=== PATIENT | male | born 1980 | race Caucasian/White ===

== ENCOUNTER 2017-01-04 11:10 | Emergency (ER) ==
[2017-01-04 11:22] VITALS: BP 129/077
[2017-01-04] MEDS ORDERED: XYLOCAINE-MPF 1% INJ ONE (11:29)
[2017-01-04] MEDS ORDERED: ULTRAM PO ONE (11:29)
--- NOTE | 2017-01-04 11:35 | PROVIDER DOCUMENTATION ---
HPI-Rash/Wound/ReCheck - General Source: patient - History of Present Illness-Dermatology Location: reports: lower extremity (L rust) Quality: reports: painful Severity: reports: mild Onset/Duration: reports: just prior to arrival Timing: reports: still present Context/Associated Symptoms: reports: laceration (L rust) Identifiable cause?: Yes (chainsaw ) Locality of Occurance: Home Similar Symptoms Previously?: Yes Recently seen or treated by another doctor?: No <Viktoriya Altman - Last Filed: 01/04/17 11:30> <Herb Alanis - Last Filed: 01/04/17 11:56> - General Chief Complaint: Laceration[s] Stated Complaint: LACERATION{S} Time Seen by Provider: 01/04/17 11:27 - History of Present Illness-Dermatology Nature of Presenting Problem: Pt is 36 y/o M presents to the ED with laceration to L rust. Pt states using a chainsaw and hitting leg. Pt denies numbness or tingling in L leg. Pt is able to ambulate after accident. Pt denies any other injury. (Viktoriya Altman) Review of Systems - Adult - REVIEW OF SYSTEMS - ADULT Constitutional: denies: chills, fever Eyes: denies: blurred vision, double vision Ears, Nose, Mouth & Throat: denies: ear pain, nose pain, throat pain Cardiovascular: denies: chest pain, heart murmur, irregular heart rate Respiratory: denies: cough, shortness of breath, wheezing Gastrointestinal: denies: abdominal pain, diarrhea, nausea, vomiting Genitourinary: denies: dysuria, hematuria Musculoskeletal: denies: bone pain, back pain, joint pain, neck pain Integumentary: reports: other (laceration to L rust). denies: hives, itching Neurological: denies: dizziness/vertigo, headache/migraines Psychiatric: reports: no symptoms reported Endocrine: reports: no symptoms reported Hematologic/Lymphatic: reports: no symptoms reported Allergic/Immunologic: reports: no symptoms reported All Other Systems: Reviewed and Negative <Viktoriya Altman - Last Filed: 01/04/17 11:30> Past History - Adult - PAST MEDICAL HISTORY-ADULT Review of Records: reports: Nursing Assessment Review, Medications Reviewed, Social history reviewed & non-contributory. Major Childhood Illnesses: reports: denies history Cardiovascular: reports: denies history Respiratory: reports: denies history Gastrointestinal: reports: denies history Obstetrical/Gynecological: reports: denies history Genitourinary: reports: denies history Musculoskeletal: reports: denies history Neurological: reports: denies history Endocrine/Immune: reports: denies history Other Conditions: reports: denies history - PRIOR SURGERIES/PROCEDURES Surgical/Procedure History: reports: reviewed, not pertinent - IMMUNIZATION STATUS Childhood Immunizations: See Nurse Assessment Flu Vaccine: See Nurse Assessment - FAMILY HISTORY Family History: reviewed, not pertinent - SOCIAL HISTORY Smoking: cigarettes, less than 1 pack/day Provider spent 3-5 mins advising pt. on dangers of tobacco.: Discussed manners to quit use, and f/u contacts for add'l counseling. Substance Use: alcohol Living Situation: family <Viktoriya Altman - Last Filed: 01/04/17 11:30> Physical Exam-General - PHYSICAL EXAM-ADULT Initial Vital Signs Reviewed: Yes - CONSTITUTIONAL General Appearance: appears well, alert, no apparent distress - EYES Eyes: PERRL/EOMI, pink conjunctivae, fundi clear, no AV nicking - HEAD, EARS, NOSE, MOUTH & THROAT HENMT: normocephalic/atraumatic, moist mucous membranes, normal ENT inspection, TMs normal, pharynx normal - NECK Neck: non-tender, full range of motion, supple, normal inspection - RESPIRATORY Respiratory: chest non-tender, lungs clear, normal breath sounds, no pleuratic chest pain, no respiratory distress, no accessory muscle use - CARDIOVASCULAR Cardiovascular: normal peripheral pulses, regular rate, rhythm, no edema, no gallop, no JVD, no murmur - GASTROINTESTINAL (ABDOMEN) Abdominal Exam: normal bowel sounds, non tender, soft, no organomegaly, no pulsatile mass - LYMPHATIC Lymphatic: no adenopathy - MUSCULOSKELETAL Back Exam: normal inspection, no CVA tenderness, no vertebral tenderness Extremity: normal range of motion, normal gait, normal inspection, no pedal edema, tenderness (L rust) - SKIN Integumentary: normal color, normal turgor, laceration(s) (3 cm lac to L rust) - NEUROLOGIC Neurologic: grossly normal - PSYCHIATRIC Psych/Mental Status: normal mood/affect, normal thought content, oriented x 3 <Viktoriya Altman - Last Filed: 01/04/17 11:30> Progress <Viktoriya Altman - Last Filed: 01/04/17 11:30> <Herb Alanis - Last Filed: 01/04/17 11:56> - PLAN OF CARE/RESULTS Progress/Plan/Lab Results: Orders Category Date Time Status Suture Tray Set-Up DIRECTED Care 01/04/17 11:29 Active Lidocaine 1% Pf [Xylocaine-Mpf 1%] Med 01/04/17 11:29 Discontinued See Dose Instructions INJ NOW ONE Tramadol [Ultram] Med 01/04/17 11:29 Discontinued 50 mg PO NOW ONE Vital Signs - 24 hr 01/04/17 11:18 Temperature 97.2 F L Pulse Rate 65 Respiratory 20 Rate Blood Pressure 129/077 O2 Sat by Pulse 100 Oximetry (Viktoriya Altman) Orders Category Date Time Status Suture Tray Set-Up DIRECTED Care 01/04/17 11:29 Active Lidocaine 1% Pf [Xylocaine-Mpf 1%] Med 01/04/17 11:29 Discontinued See Dose Instructions INJ NOW ONE Tramadol [Ultram] Med 01/04/17 11:29 Discontinued 50 mg PO NOW ONE Vital Signs Temp Pulse Resp BP Pulse Ox 01/04/17 11:18 97.2 F L 65 20 129/077 100 Tetanus is up to date. (Herb Alanis) Procedures - LACERATION/WOUND REPAIR/FB Left Tibia Wound Location: Other: left anterior tibia Wound Length: 3cm Wound's Depth, Shape: superficial, linear Wound Explored/Foreign Body: clean Irrigated with Saline?: Yes Prepped with: Hibiclens, Kit Utilized, Sterile Drapes Applied Anesthetic: 1%, Lidocaine/Xylocaine Volume of Anesthetic (ml's): 4 Wound Repaired with: Sutures Suture Size/Type: 4.0, Non-Absorbable, Nylon Layer Closure?: No Deep Layer Suture Size/Type: 4.0, Non-Absorbable, Nylon Number Deep Layer Sutures: 4 Sterile Dressing Applied?: Yes Splint Applied?: No Sling Applied?: No Post Procedure Neurovascular Exam: N/A Procedure Comment: no complications <Herb Alanis - Last Filed: 01/04/17 11:56> Departure <Viktoriya Altman - Last Filed: 01/04/17 11:30> - Departure Time of Disposition Order: 11:55 Certified Medical Emergency: Urgent <Herb Alanis - Last Filed: 01/04/17 11:56> - Departure DIAGNOSIS: Laceration of lower leg without complication Qualifiers: Encounter type: initial encounter Laterality: left Qualified Code(s): S81.812A - Laceration without foreign body, left lower leg, initial encounter Disposition: HOME 01 Condition: Good Additional Instructions: Keep area clean and dry. Follow up in 1 week for suture removal. ED Follow Up Instructions: You have been treated by a care provider in the Emergency Department. These instructions are being provided to you so you can have an understanding of how to care for yourself upon discharge. Upon discharge from the Emergency Department, you are responsible for making arrangements for follow-up care by a physician of your choice. Take all prescribed medications as directed. Return to the Emergency Department immediately for any new or worsening symptoms. You may call the Physician Referral phone number at [phone] to obtain a list of Physicians who are taking new patients. Referrals: Andrew Simon MD [Primary Care Provider] - Attestation - Scribe Verification/Attestation Scribe:: Viktoriya Altman Acting as Scribe for:: Herb Alanis Scribe documention review:: This chart was documented by a scribe and accurately reflects the service the provider performed and the decisions made by the provider. <Viktoriya Altman - Last Filed: 01/04/17 11:30> - Physician/ MIGUEL ÁNGEL Attestation Patient care was provided by Advanced Practice Provider:: Yes Advanced Practice Provider:: Herb Alanis Advanced Practice Provider documentation review:: The Mid-level provider documentation, treatment plan and medical decision making was reviewed by the physician who agrees with all treatment and medical decision making by the P. <Herb Alanis - Last Filed: 01/04/17 11:56> Physician Attestation
[2017-01-04] MEDS ORDERED: NEOSPORIN OINTMENT PACKET ONE (12:23)
== END 2017-01-04 12:31 | disposition home or self-care (01) ==
LOC: P.ED 11:10
DX: S81.812A Laceration without foreign body, left lower leg, initial encounter (principal); M79.662 Pain in left lower leg; F17.210 Nicotine dependence, cigarettes, uncomplicated; Z71.6 Tobacco abuse counseling; W29.3XXA Contact with powered garden and outdoor hand tools and machinery, initial encounter

== ENCOUNTER 2017-01-12 17:05 | Emergency (ER) ==
[2017-01-12 17:11] VITALS: BP 152/79
--- NOTE | 2017-01-12 17:21 | PROVIDER DOCUMENTATION ---
HPI-Rash/Wound/ReCheck - General Source: patient - History of Present Illness-Dermatology Location: reports: lower extremity (L) Quality: reports: none Onset/Duration: reports: other (8 days) Timing: reports: still present Context/Associated Symptoms: reports: other (suture removal) Identifiable cause?: Yes Locality of Occurance: Home Similar Symptoms Previously?: Yes Recently seen or treated by another doctor?: Yes - Recheck Treated days ago.: 8 Antibiotics given: none Symptoms since procedure:: reports: no complaints <Viktoriya Altman - Last Filed: 01/12/17 17:21> <Ted Ross - Last Filed: 01/12/17 17:27> - General Chief Complaint: Suture/Staple Removal Stated Complaint: SUTURE REMOVAL Time Seen by Provider: 01/12/17 17:12 Allergies/Adverse Reactions: Allergies Allergy/AdvReac Type Severity Reaction Status Date / Time No Known Allergies Allergy Verified 01/12/17 17:11 Home Medications: Home Medication List Medication Instructions Recorded Confirmed Last Taken Type No Home Medications 01/12/17 01/12/17 Unknown History - History of Present Illness-Dermatology Nature of Presenting Problem: Pt is 36 y/o M presents to the ED with suture removal. Pt states being in ED 8 days ago with laceration. Pt denies pain. (Viktoriya Altman) Review of Systems - Adult - REVIEW OF SYSTEMS - ADULT Constitutional: reports: no symptoms reported Eyes: reports: no symptoms reported Ears, Nose, Mouth & Throat: reports: no symptoms reported Cardiovascular: reports: no symptoms reported Respiratory: reports: no symptoms reported Gastrointestinal: reports: no symptoms reported Genitourinary: reports: no symptoms reported Musculoskeletal: reports: no symptoms reported Integumentary: reports: no symptoms reported Neurological: reports: no symptoms reported Psychiatric: reports: no symptoms reported Endocrine: reports: no symptoms reported Hematologic/Lymphatic: reports: no symptoms reported Allergic/Immunologic: reports: no symptoms reported All Other Systems: Reviewed and Negative <Viktoriya Altman - Last Filed: 01/12/17 17:21> Past History - Adult - PAST MEDICAL HISTORY-ADULT Review of Records: reports: Nursing Assessment Review, Medications Reviewed, Social history reviewed & non-contributory. Major Childhood Illnesses: reports: denies history Cardiovascular: reports: denies history Respiratory: reports: denies history Gastrointestinal: reports: denies history Obstetrical/Gynecological: reports: denies history Genitourinary: reports: denies history Musculoskeletal: reports: denies history Neurological: reports: denies history Endocrine/Immune: reports: denies history Other Conditions: reports: denies history - PRIOR SURGERIES/PROCEDURES Surgical/Procedure History: reports: reviewed, not pertinent - IMMUNIZATION STATUS Childhood Immunizations: See Nurse Assessment Flu Vaccine: See Nurse Assessment - FAMILY HISTORY Family History: reviewed, not pertinent - SOCIAL HISTORY Smoking: cigarettes, greater than 1 pack/day Provider spent 3-5 mins advising pt. on dangers of tobacco.: discussed smoking cessation Substance Use: denies Living Situation: family <Viktoriya Altman - Last Filed: 01/12/17 17:21> Physical Exam-General - PHYSICAL EXAM-ADULT Initial Vital Signs Reviewed: Yes - CONSTITUTIONAL General Appearance: appears well, alert, no apparent distress - EYES Eyes: PERRL/EOMI, pink conjunctivae, fundi clear, no AV nicking - HEAD, EARS, NOSE, MOUTH & THROAT HENMT: normocephalic/atraumatic, moist mucous membranes, normal ENT inspection, TMs normal, pharynx normal - NECK Neck: non-tender, full range of motion, supple, normal inspection - RESPIRATORY Respiratory: chest non-tender, lungs clear, normal breath sounds, no pleuratic chest pain, no respiratory distress, no accessory muscle use - CARDIOVASCULAR Cardiovascular: normal peripheral pulses, regular rate, rhythm, no edema, no gallop, no JVD, no murmur - GASTROINTESTINAL (ABDOMEN) Abdominal Exam: normal bowel sounds, non tender, soft, no organomegaly, no pulsatile mass - LYMPHATIC Lymphatic: no adenopathy - MUSCULOSKELETAL Back Exam: normal inspection, no CVA tenderness, no vertebral tenderness Extremity: normal range of motion, non-tender, normal gait, normal inspection, no pedal edema, no calf tenderness, normal capillary refill - SKIN Integumentary: normal color, normal turgor, warm/dry - NEUROLOGIC Neurologic: grossly normal - PSYCHIATRIC Psych/Mental Status: normal mood/affect, oriented x 3 <Viktoriya Altman - Last Filed: 01/12/17 17:21> Progress <Viktoriya Altman - Last Filed: 01/12/17 17:21> <Ted Ross - Last Filed: 01/12/17 17:27> - PLAN OF CARE/RESULTS Progress/Plan/Lab Results: Discussed results and plan of care with patient.. Patient agrees with plan and verbalizes understanding. Vital Signs Temp Pulse Resp BP Pulse Ox 01/12/17 17:09 98 F 79 18 152/79 98 No Known Allergies Allergy (Verified 01/12/17 17:11) No Home Medications 01/12/17 Orders Category Date Time Status Wound Care DIRECTED Care 01/12/17 17:25 Active (Ted Ross) Departure <Viktoriya Altman - Last Filed: 01/12/17 17:21> - Departure Time of Disposition Order: 17:26 Certified Medical Emergency: Emergent <Ted Ross - Last Filed: 01/12/17 17:27> - Departure DIAGNOSIS: Encounter for removal of sutures Disposition: HOME 01 Condition: Stable Additional Instructions: Follow up with primary care physician Return to ED for any concerns or worsening of symptoms ED Follow Up Instructions: You have been treated by a care provider in the Emergency Department. These instructions are being provided to you so you can have an understanding of how to care for yourself upon discharge. Upon discharge from the Emergency Department, you are responsible for making arrangements for follow-up care by a physician of your choice. Take all prescribed medications as directed. Return to the Emergency Department immediately for any new or worsening symptoms. You may call the Physician Referral phone number at [phone] to obtain a list of Physicians who are taking new patients. Attestation - Scribe Verification/Attestation Scribe:: Viktoriya Altman Acting as Scribe for:: Ted Ross Scribe documention review:: This chart was documented by a scribe and accurately reflects the service the provider performed and the decisions made by the provider. <Viktoriya Altman - Last Filed: 01/12/17 17:21> - Physician/ MIGUEL ÁNGEL Attestation Patient care was provided by Advanced Practice Provider:: Yes Advanced Practice Provider:: Ted Ross Advanced Practice Provider documentation review:: The Mid-level provider documentation, treatment plan and medical decision making was reviewed by the physician who agrees with all treatment and medical decision making by the P. <Ted Ross - Last Filed: 01/12/17 17:27> Physician Attestation
== END 2017-01-12 17:56 | disposition home or self-care (01) ==
LOC: P.ED 17:05
DX: S81.812D Laceration without foreign body, left lower leg, subsequent encounter (principal); F17.210 Nicotine dependence, cigarettes, uncomplicated; Z71.6 Tobacco abuse counseling